=== PATIENT | male | born 1965 | race Caucasian/White ===

== ENCOUNTER 2019-12-31 15:31 | Inpatient (IN) | payer MEDICAID ==
[~2019-12-31] VITALS: Ht 180.3 cm; Wt 66.3 kg
[2019-12-31] MEDS ORDERED: methylPREDNISolone SOD SUCC 125 MG/2 ML ONE (16:38)
[2019-12-31] MEDS ORDERED: DIAZEPAM 5 MG/ML, 2ML ONE (16:38)
[2019-12-31] MEDS ORDERED: KETOROLAC 30 MG/1 ML ONE (16:38)
[2019-12-31] MEDS ORDERED: HYDROmorphone 1 MG/ML, 1ML INJ ONE ×2 (16:39→19:14)
[2019-12-31] MEDS: HYDROmorphone 2 MG/ML, 1ML IVPush PRN ×2 (16:47→19:17)
[2019-12-31] MEDS ORDERED: SODIUM CHLORIDE FLUSH 10ML SYR IVF ONE (17:00)
[2019-12-31] MEDS ORDERED: KETOROLAC 30 MG/1 ML IVPush ONE (17:00)
[2019-12-31] MEDS ORDERED: DIAZEPAM 5 MG/ML, 2ML IVPush ONE ×2 (17:00→19:00)
[2019-12-31] MEDS ORDERED: methylPREDNISolone SOD SUCC 125 MG/2 ML IVPush ONE (17:00)
--- NOTE | 2019-12-31 17:00 | NUR ---
pt in mri
[2019-12-31] MEDS ORDERED: GADOTERATE 7.5 MMOL/15 ML SYR ONE ×2 (17:25→17:44)
--- NOTE | 2019-12-31 17:42 | NUR ---
PT REMAINS IN MRI
[2019-12-31] MEDS ORDERED: VANCOMYCIN PER PHARMACY MC ONE (18:30)
[2019-12-31] MEDS ORDERED: CEFTRIAXONE PMX 1GM/50ML 50 ML IVPB ONE (18:30)
[2019-12-31] MEDS ORDERED: LIDOCAINE 1%, 10ML ONE (18:40)
[2019-12-31] MEDS ORDERED: VANCOMYCIN 1,600 MG in SODIUM CHLORIDE 0.9% 250 ML IV ONE ×2 (19:00→22:30)
[2019-12-31] MEDS ORDERED: HYDROmorphone 2 MG/ML, 1ML IVPush PRN ×2 (19:00)
[2019-12-31] MEDS ORDERED: DOCUSATE 100 MG CAPSULE PO PRN (19:00)
[2019-12-31] MEDS ORDERED: ACETAMINOPHEN 325 MG TABLET PO PRN (19:00)
--- NOTE | 2019-12-31 19:00 | NUR ---
RECEIVED REPORT, ASSUMED CARE OF 54 YEAR OLD MALE RECENTLY RETURNED FROM MRI. HE HAS Addendum: 12/31/19 at 1919 by [id number] RECEIVED REPORT, ASSUMED CARE OF 54 YEAR OLD MALE RECENTLY RETURNED FROM MRI. HE HAS PMHX OF METH USE AND WAS FOUND TO HAVE AN ABSCESS THAT REQUIRES I&D IN IR. HE IS IN NO APPARENT DISTRESS.
--- NOTE | 2019-12-31 19:02 | NUR ---
PER SHELL NEIL, HOLD ABX UNTIL DR. GUTIERREZ DRAINS FOREARM ABSCESS.
[2019-12-31 19:09] LABS: BASOPHILS % (AUTO) 0 % (0-1); EOSINOPHILS # (AUTO) 0.04 x10^3/uL (0-0.4); EOSINOPHILS % (AUTO) 1 % (1-7); LYMPHOCYTES # (AUTO) 0.54 x10^3/uL (1-3.4); LYMPHOCYTES % (AUTO) 7 % (22-44); MD NO; MEAN CORPUSCULAR HEMOGLOBIN 30.8 pg (27.5-34.5); MEAN CORPUSCULAR HGB CONC 33.7 g/dL (33.2-36.2); MEAN CORPUSCULAR VOLUME 91.5 fL (81-97); MEAN PLATELET VOLUME 7.3 fL (7.4-10.4); MONOCYTES # (AUTO) 0.05 x10^3/uL (0.2-0.8); MONOCYTES % (AUTO) 1 % (2-9); NEUTROPHILS % (AUTO) 92 % (42-75); PLATELET COUNT 480 x10^3/uL (130-400); RED BLOOD COUNT 4.24 x10^6/uL (4.38-5.82); RED CELL DISTRIBUTION WIDTH 13.3 % (9.4-14.8)
[2019-12-31 19:14] LABS: ALANINE AMINOTRANSFERASE 23 U/L (12-78); ALBUMIN 2.9 g/dL (3.4-5.0); ANION GAP 5 mmol/L (5-15); CALCIUM 9.4 mg/dL (8.5-10.1); CHLORIDE 103 mmol/L (98-107); CREATININE 0.69 mg/dL (0.7-1.3)
[2019-12-31 19:16] LABS: ALKALINE PHOSPHATASE 78 U/L (45-117); BILIRUBIN,TOTAL 0.3 mg/dL (0.2-1.0); TOTAL PROTEIN 7.4 g/dL (6.4-8.2)
--- NOTE | 2019-12-31 19:20 | NUR ---
TO IR ON STRETCHER WITH TRANSPORT FOR PROCEDURE.
[2019-12-31] MEDS ORDERED: MIDAZOLAM 1 MG/ML, 5ML ONE (19:32)
[2019-12-31] MEDS ORDERED: FENTANYL PF 100 MCG/2ML ONE (19:32)
--- NOTE | 2019-12-31 19:41 | NUR ---
REPORT GIVEN TO [facility] ON FLOOR, HOWEVER PATIENT IS OFF UNIT IN IR.
--- NOTE | 2019-12-31 20:05 | NUR ---
REPORT CALLED FROM IR. PATIENT GIVEN 150 MCG F[place] DURING PROCEDURE. VSS. PREPARING TO RETURN TO ED. PATIENT WILL THEN BE SENT TO FLOOR. Addendum: 12/31/19 at 2009 by [email or web address] REPORT CALLED FROM IR. PATIENT GIVEN 150 MCG FENTANYL DURING PROCEDURE. VSS. BANDAGE IN PLACE AT [id number]. PREPARING TO RETURN TO ED. PATIENT WILL THEN BE SENT TO FLOOR.
[2019-12-31] MEDS ORDERED: VANCOMYCIN PER PHARMACY MC PRN (20:30)
[2019-12-31] MEDS ORDERED: PHARMACOKINETIC MONITORING MC PRN (21:30)
[2019-12-31] MEDS ORDERED: PHARMACOKINETIC CONSULTATION MC ONE (21:30)
[2019-12-31] MEDS ORDERED: PIPERACILLIN MC SCH (21:30)
[2019-12-31] MEDS ORDERED: TAZO MC SCH (21:30)
[2019-12-31] MEDS: HYDROcodone/APAP 5/325 TABLET PO PRN (21:42)
[2019-12-31] MEDS: NICOTINE 7 MG/24 HR PATCH.TD24 TD SCH (21:42)
[2019-12-31] MEDS: HEPARIN 5,000 UNITS/ML, 1ML SQ SCH (21:42)
[2019-12-31 21:46] VITALS: BP 133/90
[2019-12-31] MEDS: SODIUM CHLORIDE 0.9% 1,000 ML IV SCH (22:07)
[2019-12-31] MEDS ORDERED: albuterol (22:52)
[2019-12-31] MEDS ORDERED: spiriva (22:53)
[2019-12-31] MEDS ORDERED: GABA-826 PO (22:58)
[2019-12-31] MEDS ORDERED: BUPR150T8 PO (22:58)
[2019-12-31] MEDS ORDERED: OXYC5TAB2 PO (22:59)
[2019-12-31] MEDS: morphine SULFATE 10 MG/ML, 1ML IVPush PRN (23:38)
[2020-01-01] MEDS: PIPERACILLIN/TAZO/PMX 4.5GM 100 ML IV SCH ×4 (00:11→23:53)
[2020-01-01 01:23] VITALS: BP 149/95
[2020-01-01] MEDS: HEPARIN 5,000 UNITS/ML, 1ML SQ SCH ×3 (04:04→20:17)
[2020-01-01] MEDS: morphine SULFATE 10 MG/ML, 1ML IVPush PRN (04:06)
[2020-01-01] MEDS: HYDROcodone/APAP 5/325 TABLET PO PRN ×2 (05:07→11:44)
[2020-01-01 05:47] LABS: ANION GAP 7 mmol/L (5-15); CALCIUM 9.4 mg/dL (8.5-10.1); CHLORIDE 105 mmol/L (98-107); CREATININE 0.74 mg/dL (0.7-1.3)
[2020-01-01 05:51] LABS: BASOPHILS # (AUTO) 0.03 x10^3/uL (0-0.1); BASOPHILS % (AUTO) 1 % (0-1); EOSINOPHILS # (AUTO) 0.01 x10^3/uL (0-0.4); EOSINOPHILS % (AUTO) 0 % (1-7); LYMPHOCYTES # (AUTO) 0.44 x10^3/uL (1-3.4); LYMPHOCYTES % (AUTO) 9 % (22-44); MD NO; MEAN CORPUSCULAR HEMOGLOBIN 30.7 pg (27.5-34.5); MEAN CORPUSCULAR HGB CONC 33.2 g/dL (33.2-36.2); MEAN CORPUSCULAR VOLUME 92.3 fL (81-97); MEAN PLATELET VOLUME 7.5 fL (7.4-10.4); MONOCYTES # (AUTO) 0.18 x10^3/uL (0.2-0.8); MONOCYTES % (AUTO) 4 % (2-9); NEUTROPHILS # (AUTO) 4.07 x10^3/uL (1.8-6.8); NEUTROPHILS % (AUTO) 86 % (42-75); PLATELET COUNT 511 x10^3/uL (130-400); RED BLOOD COUNT 4.34 x10^6/uL (4.38-5.82); RED CELL DISTRIBUTION WIDTH 13.1 % (9.4-14.8)
[2020-01-01 06:17] LABS: TROPONIN I < 0.015 ng/mL (0.000-0.045)
[2020-01-01 08:10] VITALS: BP 148/98
[2020-01-01] MEDS: SODIUM CHLORIDE 0.9% 1,000 ML IV SCH (08:34)
[2020-01-01] MEDS: KETOROLAC 30 MG/1 ML IVPush SCH ×3 (08:35→20:17)
[2020-01-01 09:19] LABS: AMPHETAMINE SCREEN, URINE Positive (Negative); BARBITURATE SCREEN, URINE Negative (Negative); BENZODIAZEPINE SCREEN, URINE Positive (Negative); CANNABINOID SCREEN, URINE Negative (Negative); COCAINE SCREEN, URINE Negative (Negative); METHADONE SCREEN, URINE Negative (Negative); OPIATE SCREEN, URINE Positive (Negative)
[2020-01-01] MEDS: VANCOMYCIN 1,200 MG in SODIUM CHLORIDE 0.9% 250 ML IV SCH ×2 (10:28→21:47)
[2020-01-01] MEDS: METHOCARBAMOL 750 MG TABLET PO SCH ×3 (10:28→20:17)
[2020-01-01] MEDS ORDERED: GABAPENTIN 100 MG CAPSULE PO PRN (13:00)
[2020-01-01 15:00] VITALS: BP 152/97
[2020-01-01] MEDS: TIOTROPIUM BROMIDE 18 MCG/INH INH SCH (16:00)
[2020-01-01] MEDS ORDERED: CYCLOBENZAPRINE 10 MG TABLET PO SCH (16:00)
[2020-01-01] MEDS: OXYcodone IR 5MG TABLET PO SCH ×2 (16:50→20:18)
[2020-01-01] MEDS: NICOTINE 7 MG/24 HR PATCH.TD24 TD SCH (20:17)
[2020-01-01] MEDS: BUPROPION SR 150 MG TABLET PO SCH (20:17)
[2020-01-01] MEDS ORDERED: BUPROPION SR 150 MG TABLET PO SCH (21:00)
[2020-01-01 21:30] VITALS: BP 105/56
[2020-01-02 00:03] VITALS: BP 159/87
[2020-01-02] MEDS: morphine SULFATE 10 MG/ML, 1ML IVPush PRN (00:09)
[2020-01-02] MEDS: KETOROLAC 30 MG/1 ML IVPush SCH ×4 (02:38→20:51)
[2020-01-02 04:32] LABS: BASOPHILS # (AUTO) 0.05 x10^3/uL (0-0.1); BASOPHILS % (AUTO) 1 % (0-1); EOSINOPHILS % (AUTO) 2 % (1-7); LYMPHOCYTES % (AUTO) 24 % (22-44); MD NO; MEAN CORPUSCULAR HEMOGLOBIN 30.5 pg (27.5-34.5); MEAN CORPUSCULAR HGB CONC 33.1 g/dL (33.2-36.2); MEAN CORPUSCULAR VOLUME 92.1 fL (81-97); MEAN PLATELET VOLUME 7.1 fL (7.4-10.4); MONOCYTES # (AUTO) 0.15 x10^3/uL (0.2-0.8); MONOCYTES % (AUTO) 3 % (2-9); NEUTROPHILS # (AUTO) 4.41 x10^3/uL (1.8-6.8); NEUTROPHILS % (AUTO) 71 % (42-75); PLATELET COUNT 444 x10^3/uL (130-400); RED BLOOD COUNT 3.99 x10^6/uL (4.38-5.82); RED CELL DISTRIBUTION WIDTH 13.3 % (9.4-14.8)
[2020-01-02 04:41] LABS: ANION GAP 8 mmol/L (5-15); CALCIUM 8.8 mg/dL (8.5-10.1); CHLORIDE 107 mmol/L (98-107); CREATININE 0.76 mg/dL (0.7-1.3)
[2020-01-02] MEDS: METHOCARBAMOL 750 MG TABLET PO SCH ×4 (05:38→20:50)
[2020-01-02] MEDS: OXYcodone IR 5MG TABLET PO SCH ×4 (05:39→20:51)
[2020-01-02] MEDS: HEPARIN 5,000 UNITS/ML, 1ML SQ SCH ×3 (05:39→20:51)
[2020-01-02 07:42] VITALS: BP 158/95
[2020-01-02] MEDS: TIOTROPIUM BROMIDE 18 MCG/INH INH SCH (08:18)
[2020-01-02] MEDS: PIPERACILLIN/TAZO/PMX 4.5GM 100 ML IV SCH ×2 (08:18→16:18)
[2020-01-02] MEDS: BUPROPION SR 150 MG TABLET PO SCH ×2 (08:18→20:51)
[2020-01-02] MEDS: LOSARTAN 100 MG TAB PO SCH (08:19)
[2020-01-02] MEDS: VANCOMYCIN 1,200 MG in SODIUM CHLORIDE 0.9% 250 ML IV SCH (09:53)
[2020-01-02] MEDS: TAMSULOSIN 0.4 MG CAP.ER.24H PO SCH (11:18)
[2020-01-02 12:15] VITALS: BP 130/84
[2020-01-02 13:08] VITALS: BP 147/103
[2020-01-02 20:00] VITALS: BP 157/96
[2020-01-02] MEDS ORDERED: PNEUMOC 13-VALENT VACC, 0.5 ML IM-VACC ONE (20:00)
[2020-01-02] MEDS: CEFTRIAXONE PMX 2GM/50ML 50 ML IV SCH (20:50)
[2020-01-02] MEDS: NICOTINE 7 MG/24 HR PATCH.TD24 TD SCH (20:51)
[2020-01-02 22:12] LABS: C-REACTIVE PROTEIN, QUANT 0.64 mg/dL (0.02-0.49)
[2020-01-02 22:15] LABS: VANCOMYCIN,TROUGH 13.6 mcg/mL (5.0-10.0)
[2020-01-03] MEDS: morphine SULFATE 10 MG/ML, 1ML IVPush PRN (01:03)
[2020-01-03 01:04] VITALS: BP 154/95
[2020-01-03] MEDS: KETOROLAC 30 MG/1 ML IVPush SCH ×4 (03:31→20:11)
[2020-01-03 05:46] LABS: HCT (SEDRATE) 37.9 % (39.2-51.8)
[2020-01-03] MEDS: METHOCARBAMOL 750 MG TABLET PO SCH ×4 (05:51→20:11)
[2020-01-03] MEDS: OXYcodone IR 5MG TABLET PO SCH ×4 (05:51→20:11)
[2020-01-03] MEDS: HEPARIN 5,000 UNITS/ML, 1ML SQ SCH ×3 (05:51→20:11)
[2020-01-03 06:40] VITALS: BP 132/85
[2020-01-03] MEDS: TAMSULOSIN 0.4 MG CAP.ER.24H PO SCH (07:41)
[2020-01-03] MEDS: BUPROPION SR 150 MG TABLET PO SCH ×2 (07:42→20:11)
[2020-01-03] MEDS: LOSARTAN 100 MG TAB PO SCH (07:42)
[2020-01-03] MEDS: TIOTROPIUM BROMIDE 18 MCG/INH INH SCH (09:04)
[2020-01-03] MEDS: DOCUSATE 100 MG CAPSULE PO SCH ×2 (10:42→20:10)
[2020-01-03] MEDS: LIDODERM 5% PATCH TD SCH (10:42)
[2020-01-03] MEDS: ACETAMINOPHEN 325 MG TABLET PO SCH ×3 (10:43→20:10)
[2020-01-03 13:38] VITALS: BP 129/82
[2020-01-03 18:47] VITALS: BP 136/91
[2020-01-03] MEDS: CEFTRIAXONE PMX 2GM/50ML 50 ML IV SCH (20:09)
[2020-01-03] MEDS: NICOTINE 7 MG/24 HR PATCH.TD24 TD SCH (20:10)
[2020-01-04 00:46] VITALS: BP 144/93
[2020-01-04] MEDS: KETOROLAC 30 MG/1 ML IVPush SCH ×3 (02:23→15:10)
[2020-01-04] MEDS: ACETAMINOPHEN 325 MG TABLET PO SCH ×3 (02:23→15:10)
[2020-01-04] MEDS: HEPARIN 5,000 UNITS/ML, 1ML SQ SCH ×2 (05:40→13:00)
[2020-01-04] MEDS: METHOCARBAMOL 750 MG TABLET PO SCH (05:40)
[2020-01-04] MEDS: OXYcodone IR 5MG TABLET PO SCH ×3 (05:41→15:58)
[2020-01-04 06:59] VITALS: BP 151/97
[2020-01-04] MEDS: TIOTROPIUM BROMIDE 18 MCG/INH INH SCH (09:22)
[2020-01-04] MEDS: DOCUSATE 100 MG CAPSULE PO SCH (09:23)
[2020-01-04] MEDS: TAMSULOSIN 0.4 MG CAP.ER.24H PO SCH (09:23)
[2020-01-04] MEDS: LOSARTAN 100 MG TAB PO SCH (09:23)
[2020-01-04] MEDS: BUPROPION SR 150 MG TABLET PO SCH (09:23)
[2020-01-04] MEDS ORDERED: METHOCARBAMOL 750 MG TABLET PO PRN (10:30)
[2020-01-04] MEDS: LIDODERM 5% PATCH TD SCH (11:08)
[2020-01-04 13:45] VITALS: BP 147/97
[2020-01-04] MEDS ORDERED: LIDO700A20 TD (16:03)
[2020-01-04] MEDS ORDERED: GABA-826 PO (16:03)
[2020-01-04] MEDS ORDERED: METH750T2 PO (16:03)
[2020-01-04] MEDS ORDERED: LOSA100T2 PO (16:03)
[2020-01-04] MEDS ORDERED: TAMS-11 PO (16:03)
[2020-01-04] MEDS ORDERED: CEFT2PIG2 IV (16:03)
[2020-01-04] MEDS ORDERED: DOCU100C33 PO (16:03)
== END 2020-01-04 18:08 | DRG 539 ==
LOC: ED 18:14 → EDIP 18:29 → 3N 21:19
PROVIDERS: ADMIT Family Medicine; ATTEND Family Medicine
PROC: 0K9P3ZZ Drainage of Left Hip Muscle, Percutaneous Approach (ICD-10-PCS; principal; 2019-12-31)
PROC: 02HV33Z Insertion of Infusion Device into Superior Vena Cava, Percutaneous Approach (ICD-10-PCS; 2020-01-04)
PROC: B5181ZA Fluoroscopy of Superior Vena Cava using Low Osmolar Contrast, Guidance (ICD-10-PCS; 2020-01-04)
PROC: B548ZZA Ultrasonography of Superior Vena Cava, Guidance (ICD-10-PCS; 2020-01-04)
DX: M46.26 Osteomyelitis of vertebra, lumbar region (principal); K68.12 Psoas muscle abscess; L02.212 Cutaneous abscess of back [any part, except buttock and flank]; F11.20 Opioid dependence, uncomplicated; M48.56XA Collapsed vertebra, not elsewhere classified, lumbar region, initial encounter for fracture; M46.46 Discitis, unspecified, lumbar region; Z98.61 Coronary angioplasty status; Z88.0 Allergy status to penicillin; J43.9 Emphysema, unspecified; I25.2 Old myocardial infarction; I25.10 Atherosclerotic heart disease of native coronary artery without angina pectoris; I10 Essential (primary) hypertension; B19.20 Unspecified viral hepatitis C without hepatic coma; D64.9 Anemia, unspecified; F15.10 Other stimulant abuse, uncomplicated; F17.210 Nicotine dependence, cigarettes, uncomplicated; F39 Unspecified mood [affective] disorder; G89.4 Chronic pain syndrome
CPT/HCPCS: 36415; 75989; J3490; 36573; 62267; 71045; 72158; 80048; 80053; 80202; 80307; 83605; 84484; 85025; 85651; 86140; 87040; 87070; 87077; 87205; 87522; 90471; 93005; 93306; 96374; 96375; G0378; J0696; J1170; J1644; J1885; J2250; J2543; J3010; J3360; J3370; A9575; C1751; G0009; J2270; J2930; J7030; J7050

== ENCOUNTER 2020-01-04 23:19 | Emergency (ER) | payer MEDICAID ==
[~2020-01-04] VITALS: Ht 180.3 cm; Wt 65.0 kg
[~2020-01-04 23:19] MED LIST: BUPR150T8 PO; CEFT2PIG2 IV; DOCU100C33 PO; GABA-826 PO; LIDO700A20 TD; LOSA100T2 PO; METH750T2 PO; OXYC5TAB2 PO; TAMS-11 PO; albuterol; spiriva
[2020-01-04 23:27] VITALS: BP 140/110
--- NOTE | 2020-01-05 00:07 | NUR ---
54/M pt has compression fracture and two herniated disc. Suppose to have surgery, but has an infection. PICC line placed today. LBP since 12/29. Herniated on 12/28. Worsening pain, came to ER for pain management.
[2020-01-05] MEDS ORDERED: HYDROmorphone 2 MG/ML, 1ML ONE ×2 (00:21→01:38)
[2020-01-05] MEDS: HYDROmorphone 2 MG/ML, 1ML IVPush PRN ×2 (00:26→01:40)
--- NOTE | 2020-01-05 00:26 | NUR ---
Pt 10/10 pain prior to pain medication.
--- NOTE | 2020-01-05 01:14 | NUR ---
Pt states his pain is now a 11/25.
--- NOTE | 2020-01-05 02:10 | NUR ---
Pt given pain medication prior to d/c. Pt states pain has improved with medication. Given prescriptions. Pt placed in wheelchair, pt calling parent for transfer back to [facility].
== END 2020-01-05 02:15 | disposition home or self-care (01) ==
LOC: ED 01-05 00:35
DX: M54.9 Dorsalgia, unspecified (principal); I25.2 Old myocardial infarction; I25.10 Atherosclerotic heart disease of native coronary artery without angina pectoris; J43.9 Emphysema, unspecified
CPT/HCPCS: 96374; 96376; 99284; J1170